=== PATIENT | male | born 1935 | race Caucasian/White ===

== ENCOUNTER → 2016-08-16 | Outpatient (REF) | payer MEDICARE ==
[~2016-08-16] MED LIST: /PANT40TA; /WARF25TA; ACET65TA; AMLO10TA; AMLO10TA2 PO; ASTELIN; BABY81CH; CIPR500T89 PO; FLAG500T PO; GLUC500T3; LEVA250T; NAPR500T; NORCOTAB PO; PERC5TAB8; PRAV40TA2 PO; PRIL20CA; PROS5TAB; THERGRAN; TYLE325T5 PO; UROXATROL; VITA-113; VITA100T; ZEST20TA4; ZOCO20TA
[2016-08-16 15:19] LABS: ALBUMIN/GLOBULIN RATIO 1.21 (1.00-1.93); ALKALINE PHOSPHATASE 98 U/L (45-117); ALT/SGPT 54 U/L (12-78); ANION GAP 10 MEQ/L (8-16); AST/SGOT 41 U/L (15-37); BLOOD UREA NITROGEN 13 MG/DL (7-18); CARBON DIOXIDE LEVEL 28 MEQ/L (21-32); CHLORIDE LEVEL 105 MEQ/L (98-107); CHOLESTEROL LEVEL 161 MG/DL (<200); CREATININE FOR GFR 1.11 MG/DL (0.70-1.30); GLOMERULAR FILTRATION RATE > 60.0 (>35); GLUCOSE, FASTING 88 MG/DL (83-110); MAGNESIUM LEVEL 2.1 MG/DL (1.8-2.4); POTASSIUM SERUM 3.6 MEQ/L (3.5-5.1); SODIUM LEVEL 143 MEQ/L (136-145); TOTAL PROTEIN 7.3 GM/DL (6.4-8.2); TRIGLYCERIDES LEVEL 147 MG/DL (<150)
== END ==
LOC: M SFHCPLAZ 09:00
PROVIDERS: ATTEND Nurse Practitioner Family
DX: E78.2 Mixed hyperlipidemia (principal); K21.9 Gastro-esophageal reflux disease without esophagitis; Z85.46 Personal history of malignant neoplasm of prostate; E55.9 Vitamin D deficiency, unspecified

== ENCOUNTER → 2017-03-14 | Outpatient (REF) | payer MEDICARE ==
[~2017-03-14] MED LIST changes: +CIPR-249 PO; -CIPR500T89 PO
[2017-03-14 14:26] LABS: ALBUMIN 4.1 GM/DL (3.2-5.2); ALBUMIN/GLOBULIN RATIO 1.32 (1.00-1.93); ALKALINE PHOSPHATASE 96 U/L (45-117); ALT/SGPT 37 U/L (12-78); ANION GAP 7 MEQ/L (8-16); AST/SGOT 30 U/L (15-37); BILIRUBIN,TOTAL 1.2 MG/DL (0.2-1.0); BLOOD UREA NITROGEN 14 MG/DL (7-18); CALCIUM LEVEL 9.9 MG/DL (8.8-10.2); CARBON DIOXIDE LEVEL 31 MEQ/L (21-32); CHLORIDE LEVEL 101 MEQ/L (98-107); CREATININE FOR GFR 1.02 MG/DL (0.70-1.30); GLOMERULAR FILTRATION RATE > 60.0 (>35); GLUCOSE, FASTING 91 MG/DL (83-110); POTASSIUM SERUM 3.6 MEQ/L (3.5-5.1); SODIUM LEVEL 139 MEQ/L (136-145); TOTAL PROTEIN 7.2 GM/DL (6.4-8.2)
== END ==
LOC: M SFHCPLAZ 09:55
PROVIDERS: ATTEND Nurse Practitioner Family
DX: I10 Essential (primary) hypertension (principal); E55.9 Vitamin D deficiency, unspecified

== ENCOUNTER → 2017-12-12 | Outpatient (CLI) | payer MEDICARE ==
[2017-12-12 17:28] LABS: ALBUMIN 4.2 GM/DL (3.2-5.2); ALBUMIN/GLOBULIN RATIO 1.14 (1.00-1.93); ALKALINE PHOSPHATASE 130 U/L (45-117); ALT/SGPT 72 U/L (12-78); ANION GAP 9 MEQ/L (8-16); AST/SGOT 45 U/L (7-37); BILIRUBIN,TOTAL 1.3 MG/DL (0.2-1.0); BLOOD UREA NITROGEN 15 MG/DL (7-18); CALCIUM LEVEL 9.5 MG/DL (8.8-10.2); CARBON DIOXIDE LEVEL 27 MEQ/L (21-32); CHLORIDE LEVEL 103 MEQ/L (98-107); CREATININE FOR GFR 1.36 MG/DL (0.70-1.30); GLOMERULAR FILTRATION RATE 53.3 (>35); GLUCOSE, FASTING 92 MG/DL (70-100); SODIUM LEVEL 139 MEQ/L (136-145); TOTAL PROTEIN 7.9 GM/DL (6.4-8.2)
== END ==
LOC: M SMT 14:18
DX: I10 Essential (primary) hypertension (principal); J91.8 Pleural effusion in other conditions classified elsewhere
CPT/HCPCS: 80053

== ENCOUNTER → 2018-03-29 | Outpatient (REF) | payer MEDICARE ==
[2018-03-29 12:24] LABS: BASO % 0.6 % (0.0-1.0); EOS # 0.1 10^3/uL (0.0-0.50); EOS % 2.8 % (0.0-3.0); HEMATOCRIT 45.2 % (42.0-52.0); HEMOGLOBIN 14.9 g/dl (13.5-17.5); IMMATURE GRANULOCYTE % 0.2 % (0-3.0); LYMPH # 1.2 10^3/uL (1.5-4.5); MEAN CORPUSCULAR HEMOGLOBIN 32.9 pg (27.0-33.0); MEAN CORPUSCULAR VOLUME 99.8 fl (80.0-96.0); MONO # 0.4 10^3/uL (0.0-0.8); MONO % 9.5 % (0.0-5.0); NEUTROPHILS # 2.8 10^3/uL (1.8-7.7); NEUTROPHILS % 60.9 % (36.0-66.0); PLATELET COUNT, AUTOMATED 264 10^3/uL (150-450); RED BLOOD COUNT 4.53 10^6/uL (4.30-6.10); RED CELL DISTRIBUTION WIDTH 12.6 % (11.5-14.5); WHITE BLOOD COUNT 4.6 10^3/uL (4.0-10.0)
[2018-03-29 12:54] LABS: ALBUMIN 3.7 GM/DL (3.2-5.2); ALBUMIN/GLOBULIN RATIO 0.95 (1.00-1.93); ALKALINE PHOSPHATASE 130 U/L (45-117); ALT/SGPT 55 U/L (12-78); ANION GAP 9 MEQ/L (8-16); AST/SGOT 33 U/L (7-37); BILIRUBIN,TOTAL 0.8 MG/DL (0.2-1.0); BLOOD UREA NITROGEN 13 MG/DL (7-18); CARBON DIOXIDE LEVEL 29 MEQ/L (21-32); CHLORIDE LEVEL 102 MEQ/L (98-107); CREATININE FOR GFR 1.07 MG/DL (0.70-1.30); GLOMERULAR FILTRATION RATE > 60.0 (>35); GLUCOSE, FASTING 86 MG/DL (70-100); POTASSIUM SERUM 3.8 MEQ/L (3.5-5.1); SODIUM LEVEL 140 MEQ/L (136-145); TOTAL 25(OH) VITAMIN D 37.2 NG/ML (30.0-100.0); TOTAL PROTEIN 7.6 GM/DL (6.4-8.2)
== END ==
LOC: M SFHCPLAZ 08:48
DX: R06.09 Other forms of dyspnea (principal); I10 Essential (primary) hypertension; E55.9 Vitamin D deficiency, unspecified

== ENCOUNTER → 2018-03-29 | Outpatient (CLI) | payer MEDICARE | LOC: M SMT 09:53 | DX: R06.09 Other forms of dyspnea (principal); I10 Essential (primary) hypertension; E55.9 Vitamin D deficiency, unspecified | CPT/HCPCS: 80053 ==

== ENCOUNTER 2018-06-29 12:22 | Inpatient (IN) | payer MEDICARE ==
[~2018-06-29] VITALS: Ht 177.8 cm; Wt 68.0 kg
[2018-06-29] MEDS: amLODIPine 10 MG TAB PO SCH (09:00)
[~2018-06-29 12:22] MED LIST changes: -AMLO10TA2 PO; +AMLO10TA5 PO
[2018-06-29] MEDS ORDERED: OMEP40CA2 PO (12:38)
[2018-06-29 13:15] LABS: BASO % 0.6 % (0.0-1.0); EOS # 0.1 10^3/uL (0.0-0.50); EOS % 2.7 % (0.0-3.0); HEMATOCRIT 43.7 % (42.0-52.0); HEMOGLOBIN 14.9 g/dl (13.5-17.5); LYMPH # 1.2 10^3/uL (1.5-4.5); LYMPH % 23.5 % (24.0-44.0); MEAN CORPUSCULAR HGB CONC 34.1 g/dl (32.0-36.5); MEAN CORPUSCULAR VOLUME 96.7 fl (80.0-96.0); MONO # 0.5 10^3/uL (0.0-0.8); MONO % 10.1 % (0.0-5.0); NEUTROPHILS # 3.2 10^3/uL (1.8-7.7); NEUTROPHILS % 62.9 % (36.0-66.0); PLATELET COUNT, AUTOMATED 256 10^3/uL (150-450); RED BLOOD COUNT 4.52 10^6/uL (4.30-6.10); WHITE BLOOD COUNT 5.1 10^3/uL (4.0-10.0)
[2018-06-29] MEDS ORDERED: NS 1,000 ML IV ONE (13:15)
[2018-06-29 13:29] LABS: INR 1.05; PARTIAL THROMBOPLASTIN TIME 31.7 SECONDS (25.4-37.6); PROTHROMBIN TIME 13.8 SECONDS (12.1-14.4)
[2018-06-29] MEDS: MORPHINE 2 MG/ML 1ML SYRINGE (J2270) IV PRN ×2 (13:35→14:40)
[2018-06-29 13:42] LABS: ALBUMIN 3.8 GM/DL (3.2-5.2); ALT/SGPT 38 U/L (12-78); BILIRUBIN,DIRECT 0.3 MG/DL (0.0-0.2); BILIRUBIN,TOTAL 1.2 MG/DL (0.2-1.0); BLOOD UREA NITROGEN 16 MG/DL (7-18); CALCIUM LEVEL 8.9 MG/DL (8.8-10.2); CARBON DIOXIDE LEVEL 27 MEQ/L (21-32); CHLORIDE LEVEL 102 MEQ/L (98-107); CPK CREATINE PHOSPHOKINASE 107 U/L (39-308); CREATININE FOR GFR 1.16 MG/DL (0.70-1.30); GLOMERULAR FILTRATION RATE > 60.0 (>35); GLUCOSE, FASTING 95 MG/DL (70-100); LIPASE 130 U/L (73-393); MB/CK RELATIVE INDEX 2.99 (< OR =4); POTASSIUM SERUM 3.9 MEQ/L (3.5-5.1); SODIUM LEVEL 138 MEQ/L (136-145); TOTAL PROTEIN 7.9 GM/DL (6.4-8.2); TROPONIN I < 0.02 NG/ML (< 0.10)
[2018-06-29] MEDS ORDERED: ISOVUE-370 76% 100ML VIAL (Q9967) As Ordered ONE (13:46)
--- NOTE | 2018-06-29 14:40 | REP ---
CT STUDY OF THE ABDOMEN AND PELVIS WITH IV BUT WITHOUT ORAL CONTRAST: HISTORY: Left lower quadrant and inguinal pain. COMPARISON STUDY: June 08, 2014. CT FINDINGS: Preliminary digital link cutter radiograph demonstrates an unremarkable bowel gas pattern. There is mild plate-like atelectasis and linear scarring in the lung bases. No pleural effusion is seen. There is some fatty infiltration of the liver diffusely. Gallbladder surgically absent. The spleen is homogeneous. No liver or spleen lesion is seen. No adrenal lesion is observed. The kidneys enhance symmetrically and are morphologically intact. No hydronephrosis seen. There is a tiny subcentimeter cyst in the right kidney. No pancreatic abnormality is seen. Normal appendix is seen. Small and large bowel loops are unremarkable in the upper abdomen. Pelvic CT images demonstrate moderate urinary bladder distension, mild bladder wall thickening. There is a bladder diverticulum at the bladder dome. There appear to be fiducial markers at the prostate. There is a left inguinal hernia transmitting a segment of hypogastric artery into the hernia. This is unchanged from the comparison study June 08, 2014. No other abdominal wall defect is seen. IMPRESSION: There is a small left inguinal hernia unchanged from 2015 prior study. Urinary bladder is distended. No acute intra-abdominal abnormality. Electronically Signed by Vinay Evans MD 06/29/2018 04:43 P
[2018-06-29] MEDS ORDERED: NS 1,000 ML IV SCH (19:45)
[2018-06-29] MEDS ORDERED: TAMSULOSIN 0.4 MG CAP PO ONE (20:00)
[2018-06-29] MEDS: ACETAMINOPHEN TAB 650MG DOSE (2X325MG) PO PRN (22:52)
--- NOTE | 2018-06-29 23:36 | CR.PDOC ---
General Date of Consultation: Jun 29, 2018 Referring Provider: IHSAN HUGHES MD Primary Care Physician: MEREDITH BONNER NP Attending Physician: IHSAN HUGHES MD Consultation REASON FOR CONSULTATION/CHIEF COMPLAINT: confusion, bradycardia. HISTORY OF PRESENT ILLNESS: pt was doing okay living by himself at home until he started realizing he could not navigate in his own home. he has declining dementia in the last 3 years. prior he had been doing well. he was found to have pain over the suprapubic are today in the er and the er physician had him pee. he voided 400ml and had 500ml in the bladder left after they placed cueto. Urine culture obtained. Pt developed grzegorz cardia at cueto placement and again eating. Pt felt faint, but never lost consciousness. Dr. Messer informed and hospitalist consulted. Cardiology w/u discussed with Dr. Messer. ALLERGIES: Please see below. HOME MEDICATIONS: Please see below. PAST MEDICAL HISTORY: 1. prostate cancer (8-10years s/p brachytherapy)-lost to f/u 3 years ago or more says the son. 2. hypertension 3. copd (2nd hand smoke) 4. dementia (3years). PAST SURGICAL HISTORY: 1. brachytherapy FAMILY HISTORY: n/a SOCIAL HISTORY: Tobacco use:never smoker (2nd hand smoke) REVIEW OF SYSTEMS: CONSTITUTIONAL: up eating then after about 20min discussion with him and his son he became faint and experienced bradycardia to about 45. HEENT: no erythema or exudate. CARDIOVASCULAR: bradycardia. RESPIRATORY: good excursion no wheeze no stridor. GENITOURINARY: cueto (urine yellow); urinary retention; prostate cancer lost to follow up about 3years ago. MUSCULOSKELETAL: weak. GASTROINTESTINAL: denies constipation. SKIN: bruised and aged. NEUROLOGICAL: dementia, relies on son for source of information. PSYCHIATRIC: denies depression and anxiety. ENDOCRINE: denies thyroid disease. HEMATOLOGIC/LYMPHATIC: bruising. PHYSICAL EXAMINATION: VITAL SIGNS: Please see below. GENERAL APPEARANCE: alert oriented to self and place. HEENT: no erythema no exudate. RESPIRATORY: good excursion no wheeze no stridor. CARDIOVASCULAR: grzegorz cardia (sinus on the monitor). ABDOMEN: soft non tender; cueto in place (yellow urine). EXTREMITIES: bruising aged skin. NEUROLOGICAL: dementia reported, not tested except refer to his son for info. PSYCHIATRIC: normal affect. LABORATORY DATA: Please see below. ASSESSMENT/PLAN: 1. urinary retention: cueto in place. consider starting flomax if cleared by cardiology to help with voiding. will need some recovery time with cueto; anticipate voiding trial in 2 weeks if ambulatory and recovered from his initial reason for admission (confusion and grzegorz cardia); urine culture pending. 2. h/o prostate cancer: obtain psa since its been years; s/p brachytherapy. 3. confusion and bradycardia may be related. recommend pt have cardiology w/u. spent some time discussing the f/u for the incomplete emptying of the bladder with son. possibly due to prostate growth of normal and or abnormal parts of prostate. will need to verify prostate specific antigen reflects prostate cancer in remission. records from [facility] reflect psa 0.4 (2013) to 0.18(2016) (last completed 08/2016). will order psa free and total for the am with am labs. 4. other findings on ct: left inguinal hernia/bladder divertic/renal cyst. (pt will need cysto and left groin should be monitored for strangulated or incarceration) Vital Signs/I&O Vital Signs Date Time Temp Pulse Resp B/P (MAP) Pulse Ox O2 Delivery O2 Flow Rate FiO2 06/29/18 19:49 45 20 98/58 (71) 91 Room Air 06/29/18 12:25 97.1 Laboratory Data Labs 24H Laboratory Tests 2 06/29/18 12:37: Immature Granulocyte % (Auto) 0.2, White Blood Count 5.1, Red Blood Count 4.52, Hemoglobin 14.9, Hematocrit 43.7, Mean Corpuscular Volume 96.7H, Mean Corpuscular Hemoglobin 33.0, Mean Corpuscular Hemoglobin Concent 34.1, Red Cell Distribution Width 12.9, Platelet Count 256, Neutrophils (%) (Auto) 62.9, Lymphocytes (%) (Auto) 23.5L, Monocytes (%) (Auto) 10.1H, Eosinophils (%) (Auto) 2.7, Basophils (%) (Auto) 0.6, Neutrophils # (Auto) 3.2, Lymphocytes # (Auto) 1.2L, Monocytes # (Auto) 0.5, Eosinophils # (Auto) 0.1, Basophils # (Auto) 0.0, Nucleated Red Blood Cells % (auto) 0.0, Prothrombin Time 13.8, Prothromb Time International Ratio 1.05, Activated Partial Thromboplast Time 31.7, Anion Gap 9, Glomerular Filtration Rate > 60.0, Calcium Level 8.9, Aspartate Amino Transf (AST/SGOT) 28, Alanine Aminotransferase (ALT/SGPT) 38, Alkaline Phosphatase 120H, Total Bilirubin 1.2H, Direct Bilirubin 0.3H, Total Creatine Kinase 107, Creatine Kinase MB 3.0, Creatine Kinase MB Relative Index 2.99, Troponin I < 0.02, Total Protein 7.9, Albumin 3.8, Albumin/Globulin Ratio 0.93L, Lipase 130 06/29/18 14:44: Lactic Acid Level 0.7 06/29/18 15:39: Urine Color YELLOW, Urine Appearance CLEAR, Urine pH 7.0, Urine Specific [place] 1.029, Urine Protein NEGATIVE, Urine Glucose (UA) NEGATIVE, Urine Ketones NEGATIVE, Urine Blood NEGATIVE, Urine Nitrite NEGATIVE, Urine Bilirubin NEGATIVE, Urine Urobilinogen 2.0H, Urine Leukocyte Esterase NEGATIVE, Urine WBC (Auto) 0, Urine RBC (Auto) 0, Urine Hyaline Casts (Auto) 0, Urine Bacteria (Auto) NEGATIVE, Urine Squamous Epithelial Cells 0, Urine Sperm (Auto) CBC/BMP Laboratory Tests 06/29/18 12:37 Red Blood Count 4.52, Mean Corpuscular Volume 96.7 H, Mean Corpuscular Hemoglobin 33.0, Mean Corpuscular Hemoglobin Concent 34.1, Red Cell Distribution Width 12.9, Neutrophils (%) (Auto) 62.9, Lymphocytes (%) (Auto) 23.5 L, Monocytes (%) (Auto) 10.1 H, Eosinophils (%) (Auto) 2.7, Basophils (%) (Auto) 0.6, Neutrophils # (Auto) 3.2, Lymphocytes # (Auto) 1.2 L, Monocytes # (Auto) 0.5, Eosinophils # (Auto) 0.1, Basophils # (Auto) 0.0 Microbiology Microbiology 06/29/18 Blood Culture, Received Pending 06/29/18 Blood Culture, Received Pending Allergies Coded Allergies: SEPIDEH Inhibitors (Verified Allergy, Intermediate, ARF, 09/10/12) Lisinopril (Verified Allergy, Intermediate, ARF, 09/10/12) Codeine (Verified Adverse Reaction, Intermediate, HARD TO URINATE, 09/10/12) Home Medications Scheduled Amlodipine Besylate (Amlodipine Besylate) 10 Mg Tab, 10 MG PO DAILY, (Reported) Omeprazole (Omeprazole) 40 Mg Cap, 40 MG PO DAILY, (Reported) Pravastatin Sod (Pravastatin Sodium) 40 Mg Tab, 40 MG PO DAILY, (Reported) Amy Ceja MD Jun 29, 2018 20:37
--- NOTE | 2018-06-30 04:03 | REP ---
Clinical: Altered mental status. Comparison: MRI dated 03/09/2015 . Findings: Atrophy with periventricular leukomalacia and microvascular ischemic changes are appreciated. 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 The ventricles and sulci are symmetric. Duke-white differentiation is maintained. There is no evidence for acute intracranial hemorrhage, mass/mass effect, pathology or infarction. No extra-axial fluid collection. Calvarium is intact. Paranasal sinuses and mastoid air cells are clear. Impression: Atrophy and microvascular ischemic changes. No acute intracranial hemorrhage, infarction, or mass/mass effect. Electronically Signed by Luciano Yu MD 06/29/2018 08:24 P
--- NOTE | 2018-06-30 04:03 | HPE ---
DATE OF ADMISSION: 06/29/2018 PRIMARY CARE PROVIDER: Lia Berman NP ATTENDING PHYSICIAN: Dr. Hughes CHIEF COMPLAINT: Dizziness and confusion. HISTORY OF PRESENT ILLNESS: The patient is an [id number] white male with history of hypertension, dyslipidemia who presented to the hospital for management of the confusion. The history was provided by himself as well as by his son who is with him in the ER. The patient is a poor historian. Per the son, the patient is living by himself and he has Meals on Wheels and today about noon time the people who deliver the food to the patient called the son and said patient not doing well and the son went over to check on him and he was sitting on the couch and was confused so 911 was called and brought to the hospital for evaluation. In the ER his initial workup was not significant however he was found to have urine retention which the Johnson catheter was inserted by the attending. After that he is more awake, alert. Medicine service was called for admission. REVIEW OF SYSTEMS: No fever, no chills, no blurry vision. Positive for dizziness and no chest pain, no abdomen pain and no diarrhea. No tingling, numbness or weakness in the arm or lower extremities. All other systems were reviewed but negative. PAST MEDICAL HISTORY: 1. Hypertension. 2. Dyslipidemia. 3. Prostate cancer, post radiation therapy. PAST SURGICAL HISTORY: 1. Left knee replacement. 2. Hernia repair. 3. Cholecystectomy. ALLERGIES: No known drug allergies. FAMILY HISTORY: Reviewed and noncontributory. MEDICATIONS: Omeprazole 40 mg by mouth daily, Pravastatin 40 mg by mouth daily, amlodipine 10 mg by mouth daily. SOCIAL HISTORY: No alcohol abuse, no illicit drug abuse, no tobacco use and he is , lives by himself. He is DO NOT RESUSCITATE DO NOT INTUBATE. PHYSICAL EXAMINATION: VITALS: Temperature 97.1, heart rate 80, respiratory rate 18, blood pressure 150/97 and Oxygen sat 97% on room air. GENERAL: He is awake, alert and oriented times three. HEENT: Atraumatic, pupils are equal, round and reactive. No jaundice. Extraocular muscles intact. Ear, nose and throat are normal. Mouth mucous is dry. NECK: No JVD and no bruits. LUNGS: Clear no wheeze no crackles. HEART: S1, S2 regular and no murmur. ABDOMEN: Soft and nontender. EXTREMITIES: No edema in bilateral lower extremities. NEUROLOGICAL: Nonfocal. SKIN: No rash. PSYCHOLOGICAL: No acute psychosis. LABS: CBC showed a WBC 5.1, hemoglobin and hematocrit 14.9 over 43, platelets 256, sodium 138, potassium 3.9, chloride 102, bicarbonate 27, BUN 16, creatinine 1.16, glucose 95, UA is normal. CT of the abdomen and pelvis not significant. IMPRESSION: 1. Altered mental status. 2. Urinary retention. 3. Hypertension and dyslipidemia. PLAN: Patient will be admitted to med-surgical floor and his confusion seemed to have resolved after Johnson catheter inserted for urine retention. He does not have any neurological deficit. We will schedule a head CT. We will continue her home medications. We will consult a urologist for the urine retention.
[2018-06-30] MEDS: ACETAMINOPHEN TAB 650MG DOSE (2X325MG) PO PRN ×2 (04:45→16:52)
[2018-06-30] MEDS: PRAVASTATIN 20 MG TAB PO SCH (08:35)
[2018-06-30] MEDS: OMEPRAZOLE 20 MG CAP PO SCH (08:36)
[2018-06-30] MEDS: amLODIPine 10 MG TAB PO SCH (08:36)
[2018-06-30 09:39] LABS: BASO % 0.3 % (0.0-1.0); EOS # 0.1 10^3/uL (0.0-0.50); EOS % 0.8 % (0.0-3.0); HEMATOCRIT 40.5 % (42.0-52.0); HEMOGLOBIN 13.6 g/dl (13.5-17.5); LYMPH # 0.9 10^3/uL (1.5-4.5); LYMPH % 12.3 % (24.0-44.0); MEAN CORPUSCULAR HEMOGLOBIN 32.7 pg (27.0-33.0); MEAN CORPUSCULAR HGB CONC 33.6 g/dl (32.0-36.5); MEAN CORPUSCULAR VOLUME 97.4 fl (80.0-96.0); MONO # 0.5 10^3/uL (0.0-0.8); MONO % 6.7 % (0.0-5.0); NEUTROPHILS # 5.7 10^3/uL (1.8-7.7); NEUTROPHILS % 79.6 % (36.0-66.0); PLATELET COUNT, AUTOMATED 241 10^3/uL (150-450); RED BLOOD COUNT 4.16 10^6/uL (4.30-6.10); WHITE BLOOD COUNT 7.2 10^3/uL (4.0-10.0)
[2018-06-30 10:17] LABS: BLOOD UREA NITROGEN 12 MG/DL (7-18); CALCIUM LEVEL 8.5 MG/DL (8.8-10.2); CARBON DIOXIDE LEVEL 26 MEQ/L (21-32); CHLORIDE LEVEL 105 MEQ/L (98-107); CHOLESTEROL LEVEL 208 MG/DL (<200); CHOLESTEROL RISK RATIO 5.333 (<5); CPK CREATINE PHOSPHOKINASE 165 U/L (39-308); GLOMERULAR FILTRATION RATE > 60.0 (>35); GLUCOSE, FASTING 104 MG/DL (70-100); HDL CHOLESTEROL 39 MG/DL (>40); LDL CHOLESTEROL 133 MG/DL (<100); MB/CK RELATIVE INDEX 2.67 (< OR =4); NON-HDL-C 169 MG/DL; POTASSIUM SERUM 3.7 MEQ/L (3.5-5.1); SODIUM LEVEL 138 MEQ/L (136-145); TRIGLYCERIDES LEVEL 178 MG/DL (<150); TROPONIN I < 0.02 NG/ML (< 0.10)
[2018-06-30 10:20] VITALS: BP 119/64
--- NOTE | 2018-06-30 10:45 | IPNPDOC ---
Date Seen The patient was seen on 06/30/18. Progress Note SUBJECTIVE: No fever, no chills, no blurry vision. Positive for dizziness and no chest pain, no abdomen pain and no diarrhea. No tingling, numbness or weakness in the arm or lower extremities. All other systems were reviewed but negative. Pt requesting to go to the bathroom, and was reminded that he has a cueto. pt says, "no , the other one." Staff assisted pt to the bathroom. He admits to living alone, and is open to placement as he cannot care for himself anymore. PFS consulted for placement. PHYSICAL EXAMINATION: VITALS: pls see below GENERAL: He is awake, alert and oriented times three. HEENT: Atraumatic, pupils are equal, round and reactive. No jaundice. Extraocular muscles intact. Ear, nose and throat are normal. Mouth mucous is dry. NECK: No JVD and no bruits. LUNGS: Clear no wheeze no crackles. HEART: S1, S2 regular and no murmur. ABDOMEN: Soft and nontender. EXTREMITIES: No edema in bilateral lower extremities. NEUROLOGICAL: Nonfocal. SKIN: No rash. PSYCHOLOGICAL: No acute psychosis. LABS on admission: CBC showed a WBC 5.1, hemoglobin and hematocrit 14.9 over 43, platelets 256, sodium 138, potassium 3.9, chloride 102, bicarbonate 27, BUN 16, creatinine 1.16, glucose 95, UA is normal. Today's labs, reviewed, pls see below IMAGING STUDIES: CT of the abdomen and pelvis not significant. ASSESSMENT AND PLAN: The patient is an 27-[id number][age][id number] white male with history of hypertension, dyslipidemia who presented to the hospital for management of the confusion. The history was provided by himself as well as by his son who is with him in the ER. The patient is a poor historian. Per the son, the patient is living by himself and he has Meals on Wheels and today about noon time the people who deliver the food to the patient called the son and said patient not doing well and the son went over to check on him and he was sitting on the couch and was confused so 911 was called and brought to the hospital for evaluation. In the ER his initial workup was not significant however he was found to have urine retention which the Cueto catheter was inserted by the attending. After that he is more awake, alert. Medicine service was called for admission. Altered mental status. Patient will be admitted to med-surgical floor and his confusion seemed to have resolved after Cueto catheter inserted for urine retention. He does not have any neurological deficit. We will schedule a head CT. Urinary retention. urologist for the urine retention. Hypertension We will continue her home medications. dyslipidemia. We will continue her home medications. Prostate cancer, post radiation therapy. Left knee replacement. Hernia repair. Cholecystectomy. CODE STATUS:He is DO NOT RESUSCITATE DO NOT INTUBATE. disposition: placement. pfs consulted. VS, I&O, 24H, [facility] Vital Signs/I&O Vital Signs Date Time Temp Pulse Resp B/P (MAP) Pulse Ox O2 Delivery O2 Flow Rate FiO2 06/30/18 06:01 99.0 61 2 134/69 (90) 92 Room Air I&O- Last 24 Hours up to 6 AM 06/30/18 06:00 Intake Total 240 ml Output Total 1750 ml Balance -1510 ml Laboratory Data 24H LABS Laboratory Tests 2 06/29/18 12:37: Immature Granulocyte % (Auto) 0.2, White Blood Count 5.1, Red Blood Count 4.52, Hemoglobin 14.9, Hematocrit 43.7, Mean Corpuscular Volume 96.7H, Mean Corpuscular Hemoglobin 33.0, Mean Corpuscular Hemoglobin Concent 34.1, Red Cell Distribution Width 12.9, Platelet Count 256, Neutrophils (%) (Auto) 62.9, Lymph ocytes (%) (Auto) 23.5L, Monocytes (%) (Auto) 10.1H, Eosinophils (%) (Auto) 2.7, Basophils (%) (Auto) 0.6, Neutrophils # (Auto) 3.2, Lymphocytes # (Auto) 1.2L, Monocytes # (Auto) 0.5, Eosinophils # (Auto) 0.1, Basophils # (Auto) 0.0, Nucleated Red Blood Cells % (auto) 0.0, Prothrombin Time 13.8, Prothromb Time International Ratio 1.05, Activated Partial Thromboplast Time 31.7, Anion Gap 9, Glomerular Filtration Rate > 60.0, Calcium Level 8.9, Aspartate Amino Transf (AST/SGOT) 28, Alanine Aminotransferase (ALT/SGPT) 38, Alkaline Phosphatase 120H, Total Bilirubin 1.2H, Direct Bilirubin 0.3H, Total Creatine Kinase 107, Creatine Kinase MB 3.0, Creatine Kinase MB Relative Index 2.99, Troponin I < 0.02, Total Protein 7.9, Albumin 3.8, Albumin/Globulin Ratio 0.93L, Lipase 130 06/29/18 14:44: Lactic Acid Level 0.7 06/29/18 15:39: Urine Color YELLOW, Urine Appearance CLEAR, Urine pH 7.0, Urine Specific [place] 1.029, Urine Protein NEGATIVE, Urine Glucose (UA) NEGATIVE, Urine Ketones NEGATIVE, Urine Blood NEGATIVE, Urine Nitrite NEGATIVE, Urine Bilirubin NEGATIVE, Urine Urobilinogen 2.0H, Urine Leukocyte Esterase NEGATIVE, Urine WBC (Auto) 0, Urine RBC (Auto) 0, Urine Hyaline Casts (Auto) 0, Urine Bacteria (Auto) NEGATIVE, Urine Squamous Epithelial Cells 0, Urine Sperm (Auto) CBC/BMP Laboratory Tests 06/29/18 12:37 Red Blood Count 4.52, Mean Corpuscular Volume 96.7 H, Mean Corpuscular Hemoglobin 33.0, Mean Corpuscular Hemoglobin Concent 34.1, Red Cell Distribution Width 12.9, Neutrophils (%) (Auto) 62.9, Lymphocytes (%) (Auto) 23.5 L, Monocytes (%) (Auto) 10.1 H, Eosinophils (%) (Auto) 2.7, Basophils (%) (Auto) 0.6, Neutrophils # (Auto) 3.2, Lymphocytes # (Auto) 1.2 L, Monocytes # (Auto) 0.5, Eosinophils # (Auto) 0.1, Basophils # (Auto) 0.0 Microbiology Microbiology 06/29/18 Blood Culture, Received Pending 06/29/18 Blood Culture, Received Pending JEANNE KEENAN MD Jun 30, 2018 06:51
[2018-06-30 14:00] VITALS: BP 127/64
[2018-06-30 22:00] VITALS: BP 129/69
[2018-07-01] MEDS: ACETAMINOPHEN TAB 650MG DOSE (2X325MG) PO PRN ×2 (05:37→22:00)
[2018-07-01 06:00] VITALS: BP 142/70
--- NOTE | 2018-07-01 08:56 | ECGEPIP ---
Stationary ECG Study [facility] - ED Test Date: 2018-06-29 Pat Name: CARLEEN SHAFFER Department: Room: - Gender: M Service Support Representative: : 1935 Requested By: Talib Marti Order Number: [id number] Reading MD: Iveth Hardy Measurements Intervals [place] Rate: 68 P: 70 CT: 199 QRS: 22 QRSD: 90 T: 70 QT: 400 QTc: 428 Interpretive Statements SINUS RHYTHM NSTTW ABNORMALITY DECREASED RATE 06/10/14 Electronically Signed On 07-01-2018 8:56:46 EST by Iveth Hardy
[2018-07-01] MEDS: OMEPRAZOLE 20 MG CAP PO SCH (09:01)
[2018-07-01] MEDS: PRAVASTATIN 20 MG TAB PO SCH (09:02)
[2018-07-01] MEDS: amLODIPine 10 MG TAB PO SCH (09:02)
[2018-07-01 14:00] VITALS: BP 128/67
--- NOTE | 2018-07-01 16:50 | IPNPDOC ---
Date Seen The patient was seen on 07/01/18. Progress Note SUBJECTIVE: Pt was seen and examined at the bedside while eating breakfast. He has no c/o dysuria, urgency, or frequency. Johnson to gravity draining well and no cloudiness or foul odor. no fever or chills. Pt lives alone and requests assistance with discharge options. Pt is unable to care for himself at home anymore. PFS consulted. no other acute medical issues. PHYSICAL EXAMINATION: VITALS: pls see below GENERAL: He is awake, alert and oriented times three. HEENT: Atraumatic, pupils are equal, round and reactive. No jaundice. Extraocular muscles intact. Ear, nose and throat are normal. Mouth mucous is dry. NECK: No JVD and no bruits. LUNGS: Clear no wheeze no crackles. HEART: S1, S2 regular and no murmur. ABDOMEN: Soft and nontender. EXTREMITIES: No edema in bilateral lower extremities. NEUROLOGICAL: Nonfocal. SKIN: No rash. PSYCHOLOGICAL: No acute psychosis. LABS on admission: CBC showed a WBC 5.1, hemoglobin and hematocrit 14.9 over 43, platelets 256, sodium 138, potassium 3.9, chloride 102, bicarbonate 27, BUN 16, creatinine 1.16, glucose 95, UA is normal. Today's labs, reviewed, pls see below IMAGING STUDIES: CT of the abdomen and pelvis not significant. ASSESSMENT AND PLAN: The patient is an [id number] white male with history of hypertension, dyslipidemia who presented to the hospital for management of the confusion. The history was provided by himself as well as by his son who is with him in the ER. The patient is a poor historian. Per the son, the patient is living by himself and he has Meals on Wheels and today about noon time the people who deliver the food to the patient called the son and said patient not doing well and the son went over to check on him and he was sitting on the couch and was confused so 911 was called and brought to the hospital for evaluation. In the ER his initial workup was not significant however he was found to have urine retention which the Johnson catheter was inserted by the attending. After that he is more awake, alert. Medicine service was called for admission. Altered mental status, resolved. Patient will be admitted to med-surgical floor and his confusion seemed to have resolved after Johnson catheter inserted for urine retention. He does not have any neurological deficit. We will schedule a head CT. Urinary retention. urologist for the urine retention. Hypertension We will continue her home medications. dyslipidemia. We will continue her home medications. Prostate cancer, post radiation therapy. Left knee replacement. Hernia repair. Cholecystectomy. CODE STATUS:He is DO NOT RESUSCITATE DO NOT INTUBATE. disposition: Pt lives alone and requests assistance with discharge options. Pt is unable to care for himself at home anymore. PFS consulted. no other acute medical issues. placement. pfs consulted. VS, I&O, 24H, [facility] Vital Signs/I&O Vital Signs Date Time Temp Pulse Resp B/P (MAP) Pulse Ox O2 Delivery O2 Flow Rate FiO2 07/01/18 14:00 98.7 70 18 128/67 (87) 90 Room Air I&O- Last 24 Hours up to 6 AM 07/01/18 06:00 Intake Total 290 ml Output Total 2150 ml Balance -1860 ml Laboratory Data 24H LABS Laboratory Tests 2 07/01/18 07:38: Urine Color YELLOW, Urine Appearance CLEAR, Urine pH 5.0, Urine Specific [place] 1.017, Urine Protein 1+H, Urine Glucose (UA) NEGATIVE, Urine Ketones NEGATIVE, Urine Blood 1+H, Urine Nitrite NEGATIVE, Urine Bilirubin NEGATIVE, Urine Urobilinogen 4.0H, Urine Leukocyte Esterase TRACEH, Urine WBC (Auto) 2, Urine RBC (Auto) 1, Urine Hyaline Casts (Auto) 0, Urine Bacteria (Auto) NEGATIVE, Urine Squamous Epithelial Cells 0, Urine Mucus (Auto) SMALL, Urine Sperm (Auto) Microbiology Microbiology 06/29/18 Blood Culture - Preliminary, Resulted No Growth after 48 hours. All Specime... 06/29/18 Blood Culture - Preliminary, Resulted No Growth after 48 hours. All Specime... 07/01/18 Urine Culture, Received Pending JEANNE KEENAN MD Jul 01, 2018 16:50
[2018-07-01 22:00] VITALS: BP 150/85
[2018-07-02 06:00] VITALS: BP 144/84
[2018-07-02] MEDS: OMEPRAZOLE 20 MG CAP PO SCH (08:10)
[2018-07-02] MEDS: PRAVASTATIN 20 MG TAB PO SCH (08:10)
[2018-07-02] MEDS: amLODIPine 10 MG TAB PO SCH (08:11)
--- NOTE | 2018-07-02 09:18 | IPNPDOC ---
Date Seen The patient was seen on 07/02/18. Progress Note SUBJECTIVE: Awaiting placement. medicallystable. ok to transfer to [facility] status until placement can be finalized. Pt was seen and examined at the bedside while eating breakfast. He has no c/o dysuria, urgency, or frequency. Johnson to gravity draining well and no cloudiness or foul odor. no fever or chills. Pt lives alone and requests assistance with discharge options. Pt is unable to care for himself at home anymore. PFS consulted. no other acute medical issues. PHYSICAL EXAMINATION: VITALS: pls see below GENERAL: He is awake, alert and oriented times three. HEENT: Atraumatic, pupils are equal, round and reactive. No jaundice. Extraocular muscles intact. Ear, nose and throat are normal. Mouth mucous is dry. NECK: No JVD and no bruits. LUNGS: Clear no wheeze no crackles. HEART: S1, S2 regular and no murmur. ABDOMEN: Soft and nontender. EXTREMITIES: No edema in bilateral lower extremities. NEUROLOGICAL: Nonfocal. SKIN: No rash. PSYCHOLOGICAL: No acute psychosis. LABS on admission: CBC showed a WBC 5.1, hemoglobin and hematocrit 14.9 over 43, platelets 256, sodium 138, potassium 3.9, chloride 102, bicarbonate 27, BUN 16, creatinine 1.16, glucose 95, UA is normal. Today's labs, reviewed, pls see below IMAGING STUDIES: CT of the abdomen and pelvis not significant. ASSESSMENT AND PLAN: The patient is an [id number] white male with history of hypertension, dyslipidemia who presented to the hospital for management of the confusion. The history was provided by himself as well as by his son who is with him in the ER. The patient is a poor historian. Per the son, the patient is living by himself and he has Meals on Wheels and today about noon time the people who deliver the food to the patient called the son and said patient not doing well and the son went over to check on him and he was sitting on the couch and was confused so 911 was called and brought to the hospital for evaluation. In the ER his initial workup was not significant however he was found to have urine retention which the Johnson catheter was inserted by the attending. After that he is more awake, alert. Medicine service was called for admission. Altered mental status, resolved. Patient will be admitted to med-surgical floor and his confusion seemed to have resolved after Johnson catheter inserted for urine retention. He does not have any neurological deficit. We will schedule a head CT. Urinary retention. urologist for the urine retention. Hypertension We will continue her home medications. dyslipidemia. We will continue her home medications. Prostate cancer, post radiation therapy. Left knee replacement. Hernia repair. Cholecystectomy. CODE STATUS:He is DO NOT RESUSCITATE DO NOT INTUBATE. disposition: Pt lives alone and requests assistance with discharge options. Pt is unable to care for himself at home anymore. PFS consulted. no other acute medical issues. placement. pfs consulted. VS, I&O, 24H, Fishbone Vital Signs/I&O Vital Signs Date Time Temp Pulse Resp B/P (MAP) Pulse Ox O2 Delivery O2 Flow Rate FiO2 07/02/18 06:00 97.7 61 17 144/84 (104) 93 Room Air I&O- Last 24 Hours up to 6 AM 07/02/18 06:00 Intake Total 1200 ml Output Total 2250 ml Balance -1050 ml Laboratory Data Microbiology Microbiology 06/29/18 Blood Culture - Preliminary, Resulted No Growth after 48 hours. All Specime... 06/29/18 Blood Culture - Preliminary, Resulted No Growth after 48 hours. All Specime... 07/01/18 Urine Culture, Received Pending JEANNE KEENAN MD Jul 02, 2018 09:18
[2018-07-02 12:04] LABS: HEMATOCRIT 41.2 % (42.0-52.0); HEMOGLOBIN 14.1 g/dl (13.5-17.5); MEAN CORPUSCULAR HGB CONC 34.2 g/dl (32.0-36.5); MEAN CORPUSCULAR VOLUME 96.5 fl (80.0-96.0); PLATELET COUNT, AUTOMATED 242 10^3/uL (150-450); RED BLOOD COUNT 4.27 10^6/uL (4.30-6.10); WHITE BLOOD COUNT 8.3 10^3/uL (4.0-10.0)
[2018-07-02 12:38] LABS: BLOOD UREA NITROGEN 13 MG/DL (7-18); CARBON DIOXIDE LEVEL 30 MEQ/L (21-32); CHLORIDE LEVEL 100 MEQ/L (98-107); CREATININE FOR GFR 1.15 MG/DL (0.70-1.30); GLOMERULAR FILTRATION RATE > 60.0 (>35); GLUCOSE, FASTING 83 MG/DL (70-100); POTASSIUM SERUM 3.6 MEQ/L (3.5-5.1); SODIUM LEVEL 138 MEQ/L (136-145)
[2018-07-02 14:00] VITALS: BP 129/79
[2018-07-02] MEDS: CIPRODEX OTIC SUSP 7.5ML AD SCH (22:13)
[2018-07-03 06:00] VITALS: BP 128/70
[2018-07-03] MEDS: ACETAMINOPHEN TAB 650MG DOSE (2X325MG) PO PRN ×2 (06:53→22:19)
[2018-07-03] MEDS: CIPRODEX OTIC SUSP 7.5ML AD SCH ×2 (09:00→20:38)
[2018-07-03 10:10] LABS: PSA TOTAL 0.2 ng/mL (0.0-4.0)
[2018-07-03] MEDS: OMEPRAZOLE 20 MG CAP PO SCH (10:56)
[2018-07-03] MEDS: amLODIPine 10 MG TAB PO SCH (10:56)
[2018-07-03] MEDS: PRAVASTATIN 20 MG TAB PO SCH (10:56)
--- NOTE | 2018-07-03 11:28 | IPNPDOC ---
Date Seen The patient was seen on 07/03/18. Progress Note SUBJECTIVE: Patient is a 83yo white male with cueto after 50% incomplete emptying. His urine culture is negative and renal function is normal. Except for grzegorz cardia that is persistent. PSA ordered 06/29/18 is pending. Son plans to take him home. Discussed voiding trial as outpatient. REVIEW OF SYSTEMS: CONSTITUTIONAL: son report grzegorz cardia again yesterday (unprovoked). HEENT: no erythema or exudate. CARDIOVASCULAR: bradycardia. RESPIRATORY: good excursion no wheeze no stridor. GENITOURINARY: cueto (urine yellow); urinary retention; prostate cancer lost to follow up about 3years ago. MUSCULOSKELETAL: weak. GASTROINTESTINAL: denies constipation. SKIN: bruised and aged. NEUROLOGICAL: dementia, relies on son for source of information. PSYCHIATRIC: denies depression and anxiety. ENDOCRINE: denies thyroid disease. HEMATOLOGIC/LYMPHATIC: bruising. PHYSICAL EXAMINATION: VITAL SIGNS: Please see below. GENERAL APPEARANCE: alert oriented to self and place. HEENT: no erythema no exudate. RESPIRATORY: good excursion no wheeze no stridor. CARDIOVASCULAR: grzegorz cardia (sinus on the monitor). ABDOMEN: soft non tender; cueto in place (yellow urine). EXTREMITIES: bruising aged skin. NEUROLOGICAL: dementia reported, not tested except refer to his son for info. PSYCHIATRIC: normal affect. LABORATORY DATA, IMAGING STUDIES, MICROBIOLOGY: Please see below. Echocardiogram: NOT COMPLETED. DVT prophylaxis ordered?: ASSESSMENT AND PLAN: This is a 83 yo male with incomplete emptying. PSA pending. prior h/o of prostate cancer. Voiding trial as an outpatient. Consider cardiology w/u for grzegorz cardia prior to discharge. DISPOSITION: home with son. VS, I&O, [facility] Vital Signs/I&O Vital Signs Date Time Temp Pulse Resp B/P (MAP) Pulse Ox O2 Delivery O2 Flow Rate FiO2 07/03/18 10:56 60 130/70 07/03/18 06:00 98.2 18 93 Room Air I&O- Last 24 Hours up to 6 AM 07/03/18 06:00 Intake Total 360 ml Output Total 975 ml Balance -615 ml Laboratory Data 24H LABS Laboratory Tests 2 07/02/18 11:29: Nucleated Red Blood Cells % (auto) 0.0, Anion Gap 8, Glomerular Filtration Rate > 60.0, Blood Urea Nitrogen 13, Creatinine 1.15, Sodium Level 138, Potassium Level 3.6, Chloride Level 100, Carbon Dioxide Level 30, Calcium Level 9.0 CBC/BMP Laboratory Tests 07/02/18 11:29 Red Blood Count 4.27 L, Mean Corpuscular Volume 96.5 H, Mean Corpuscular Hemoglobin 33.0, Mean Corpuscular Hemoglobin Concent 34.2, Red Cell Distribution Width 13.2, Calcium Level 9.0 Microbiology Microbiology 06/29/18 Blood Culture - Preliminary, Resulted No Growth after 72 hours. All specime... 06/29/18 Blood Culture - Preliminary, Resulted No Growth after 72 hours. All specime... 07/01/18 Urine Culture - Final, Complete Amy Ceja MD Jul 03, 2018 11:28
[2018-07-03 14:00] VITALS: BP 154/90
--- NOTE | 2018-07-03 15:24 | IPN ---
DATE: 07/03/2018 Jaylon was seen with his family. There is some concern expressed about his heart rate, which I think they are physiologic for an 83-year-old. Reviewing his pulse, it tends to get a little lower when he is sleeping. It is in the 60-70 range when he is awake. His EKG on admission showed no first, second, or third AV block. He has had no chronotropic agents and his TSH is normal. PHYSICAL EXAMINATION: He is alert and conversant. His lungs are clear. Heart regular rate and rhythm. Pulse was normal. IMPRESSION: Physiologic bradycardia. I do not think this precludes him receiving Flomax. Will do an EKG just to confirm this but no change from admission. I think he can safely tolerate Flomax 0.4 mg daily, which we will order once we get the EKG back. The family would like to followup with the [facility] and I will be communicating with his primary care provider about that and she can arrange to followup after discharge.
[2018-07-03 22:00] VITALS: BP 158/78
--- NOTE | 2018-07-04 00:53 | ECGEPIP ---
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
[2018-07-04 04:34] VITALS: BP 136/68
[2018-07-04 07:00] VITALS: BP 146/70
[2018-07-04] MEDS: TAMSULOSIN 0.4 MG CAP PO SCH (09:00)
[2018-07-04] MEDS: OMEPRAZOLE 20 MG CAP PO SCH (10:19)
[2018-07-04] MEDS: PRAVASTATIN 20 MG TAB PO SCH (10:22)
[2018-07-04] MEDS: amLODIPine 10 MG TAB PO SCH (10:22)
[2018-07-04] MEDS: CIPRODEX OTIC SUSP 7.5ML AD SCH ×2 (10:23→20:25)
--- NOTE | 2018-07-04 13:19 | IPN ---
DATE: 07/04/2018 Jose Ramon is seen [facility]. He is tolerating his Flomax. His heart rate has been unaffected by this. PHYSICAL EXAMINATION: 130/70. Pulse is around 60. No significant bradycardia. No symptomatic episodes. IMPRESSION: 1. Bradycardia. Physiologic. No evidence of AV block on EKG. Tolerating Flomax without difficulty. 2. Acute urinary retention. He has an indwelling Johnson catheter. He is on Flomax. Family would like to see Dr. Woody in the urology office when he has his trial of voiding and removal of catheter there. 3. Disposition. The family would like to pursue subacute rehabilitation.
[2018-07-04 14:00] VITALS: BP 118/67
[2018-07-04 14:53] LABS: PSA TOTAL 0.2 ng/mL (0.0-4.0)
[2018-07-05 06:00] VITALS: BP 119/66
--- NOTE | 2018-07-05 09:28 | IPNPDOC ---
Date Seen The patient was seen on 07/05/18. Progress Note SUBJECTIVE: Patient is a 83yo white male who is being evaluated by PT as we speak. The RN explains that the patient is not strong enough for home. His son had previously stated he wanted to take his dad home. it appears that the hospitalist team have planned to send him home. Dr. Stone has performed an EKG and put the patient on flomax. He's been on flomax since 07/04/18. His prostate specific antigen is in remission range at 0.2. REVIEW OF SYSTEMS: CONSTITUTIONAL: son report grzegorz cardia again yesterday (unprovoked). apparently physiologic bradycardia. HEENT: no erythema or exudate. CARDIOVASCULAR: bradycardia. RESPIRATORY: good excursion no wheeze no stridor. GENITOURINARY: cueto (urine yellow- slightly darker today; urinary retention; prostate cancer lost to follow up about 3years ago. MUSCULOSKELETAL: weak. GASTROINTESTINAL: denies constipation. SKIN: bruised and aged. NEUROLOGICAL: dementia, relies on son for source of information. PSYCHIATRIC: denies depression and anxiety. ENDOCRINE: denies thyroid disease. HEMATOLOGIC/LYMPHATIC: bruising. PHYSICAL EXAMINATION: VITAL SIGNS: Please see below. GENERAL APPEARANCE: alert oriented to self and place. HEENT: no erythema no exudate. RESPIRATORY: good excursion no wheeze no stridor. CARDIOVASCULAR: grzegorz cardia (sinus on the monitor). ABDOMEN: soft non tender; cueto in place (yellow urine). EXTREMITIES: bruising aged skin. NEUROLOGICAL: dementia reported, not tested except refer to his son for info. PSYCHIATRIC: normal affect. LABORATORY DATA, IMAGING STUDIES, MICROBIOLOGY: Please see below. ASSESSMENT AND PLAN: Patient is a 83yo white male. Consider voiding trial be completed as a vcug in after at least 2 weeks of flomax, if pooping and ambulating daily. cueto was placed 06/29/18. It is safe to keep this cueto til 07/30/18. Please change bags weekly and practice hygeine around the genitalia. DISPOSITION: to facility per his nurse. VS, I&O, 24H, Fishbone Vital Signs/I&O Vital Signs Date Time Temp Pulse Resp B/P (MAP) Pulse Ox O2 Delivery O2 Flow Rate FiO2 07/05/18 06:00 97.8 58 18 119/66 (83) 89 07/04/18 07:00 Room Air I&O- Last 24 Hours up to 6 AM 07/05/18 05:59 Intake Total 900 ml Output Total 1700 ml Balance -800 ml Laboratory Data Microbiology Microbiology 06/29/18 Blood Culture - Final, Complete NO GROWTH AFTER 5 DAYS 06/29/18 Blood Culture - Final, Complete NO GROWTH AFTER 5 DAYS 07/01/18 Urine Culture - Final, Complete Amy Ceja MD Jul 05, 2018 09:25
[2018-07-05] MEDS: TAMSULOSIN 0.4 MG CAP PO SCH (09:32)
[2018-07-05] MEDS: PRAVASTATIN 20 MG TAB PO SCH (09:32)
[2018-07-05] MEDS: amLODIPine 10 MG TAB PO SCH (09:33)
[2018-07-05] MEDS: CIPRODEX OTIC SUSP 7.5ML AD SCH ×2 (09:33→20:44)
[2018-07-05] MEDS: OMEPRAZOLE 20 MG CAP PO SCH (09:33)
[2018-07-05 09:39] LABS: HEMATOCRIT 41.4 % (42.0-52.0); MEAN CORPUSCULAR HEMOGLOBIN 32.6 pg (27.0-33.0); MEAN CORPUSCULAR HGB CONC 33.8 g/dl (32.0-36.5); MEAN CORPUSCULAR VOLUME 96.3 fl (80.0-96.0); PLATELET COUNT, AUTOMATED 251 10^3/uL (150-450); WHITE BLOOD COUNT 5.5 10^3/uL (4.0-10.0)
[2018-07-05 10:07] LABS: BLOOD UREA NITROGEN 18 MG/DL (7-18); CARBON DIOXIDE LEVEL 30 MEQ/L (21-32); CHLORIDE LEVEL 102 MEQ/L (98-107); CREATININE FOR GFR 1.09 MG/DL (0.70-1.30); GLOMERULAR FILTRATION RATE > 60.0 (>35); GLUCOSE, FASTING 108 MG/DL (70-100); POTASSIUM SERUM 3.5 MEQ/L (3.5-5.1); SODIUM LEVEL 139 MEQ/L (136-145)
[2018-07-05 14:00] VITALS: BP 128/68
[2018-07-06 06:00] VITALS: BP 150/77
[2018-07-06 08:22] VITALS: BP 150/77
[2018-07-06] MEDS: TAMSULOSIN 0.4 MG CAP PO SCH (08:22)
[2018-07-06] MEDS: amLODIPine 10 MG TAB PO SCH (08:22)
[2018-07-06] MEDS: OMEPRAZOLE 20 MG CAP PO SCH (08:22)
[2018-07-06] MEDS: PRAVASTATIN 20 MG TAB PO SCH (08:22)
[2018-07-06] MEDS: CIPRODEX OTIC SUSP 7.5ML AD SCH (08:23)
[2018-07-06] MEDS: ACETAMINOPHEN TAB 650MG DOSE (2X325MG) PO PRN (13:31)
[2018-07-06] MEDS ORDERED: FLOM0.4C39 PO (13:54)
--- NOTE | 2018-07-20 10:39 | DSES ---
DATE OF ADMISSION: 06/29/2018 DATE OF DISCHARGE: 07/06/2018 PRINCIPAL DIAGNOSIS: Acute urinary retention requiring chronic indwelling Johnson catheter. SECONDARY DIAGNOSIS: Physiologic bradycardia. HISTORY: The patient was admitted to the hospitalist service for dizziness and confusion, found to have acute urinary retention, was admitted for further evaluation. HOSPITAL COURSE: The patient was seen by urology. Initially we were concerned about the patient taking Flomax because he was bradycardic. Did an electrocardiogram (EKG) and there was no block. We started Flomax and he tolerated it well without bradycardia or any significant side effect. On the day of discharge, his heart rate was in the 80s. Blood pressure 150/77. SIGNIFICANT LABORATORIES: White count 5.5, hemoglobin 14, platelets 251 the day before discharge. On that day, his sodium was 139, potassium 3.5, BUN 18, creatinine 1.0, glucose 108. He had a PSA that was 0.2. Blood and urine cultures were negative. DISPOSITION: The patient was discharged home with chronic indwelling Johnson catheter. Followup urology as an outpatient. Followup with his primary care provider as an outpatient. MEDICATIONS: On discharge: - amlodipine 10 mg daily - omeprazole 40 mg daily - pravastatin 40 mg daily - Flomax 0.4 mg daily Activity and diet as tolerated. Followup with primary care provider. Followup with urology per their office.
== END 2018-07-06 14:57 | disposition home health service (06) | DRG 948 ==
LOC: EDBD 12:22 → M ED 12:22 → M ED INP 19:26 → M MSPAV 06-30 10:20
PROVIDERS: ADMIT Hospitalist; ATTEND Family Medicine
DX: R41.82 Altered mental status, unspecified (principal); R33.9 Retention of urine, unspecified; R00.1 Bradycardia, unspecified; Z79.899 Other long term (current) drug therapy; I10 Essential (primary) hypertension; E78.5 Hyperlipidemia, unspecified; Z85.46 Personal history of malignant neoplasm of prostate; Z96.652 Presence of left artificial knee joint; J44.9 Chronic obstructive pulmonary disease, unspecified; F03.90 Unspecified dementia, unspecified severity, without behavioral disturbance, psychotic disturbance, mood disturbance, and anxiety; K40.90 Unilateral inguinal hernia, without obstruction or gangrene, not specified as recurrent; N28.1 Cyst of kidney, acquired; Z88.5 Allergy status to narcotic agent; Z88.8 Allergy status to other drugs, medicaments and biological substances; Z66 Do not resuscitate

== ENCOUNTER → 2018-09-24 | Outpatient (REF) | payer MEDICARE ==
[~2018-09-24] MED LIST changes: -/PANT40TA; -/WARF25TA; +COUM1TAB18; +FLOM0.4C39 PO; +HYDR-3715 PO; -NORCOTAB PO; +OMEP40CA2 PO; +PROT1TAB2
[2018-09-24 16:17] LABS: ALBUMIN 3.8 GM/DL (3.2-5.2); ALT/SGPT 91 U/L (12-78); BILIRUBIN,TOTAL 0.9 MG/DL (0.2-1.0); BLOOD UREA NITROGEN 13 MG/DL (7-18); CALCIUM LEVEL 8.9 MG/DL (8.8-10.2); CARBON DIOXIDE LEVEL 29 MEQ/L (21-32); CHLORIDE LEVEL 104 MEQ/L (98-107); CHOLESTEROL LEVEL 155 MG/DL (<200); CHOLESTEROL RISK RATIO 3.522 (<5); CREATININE FOR GFR 0.96 MG/DL (0.70-1.30); GLOMERULAR FILTRATION RATE > 60.0 (>35); GLUCOSE, FASTING 84 MG/DL (70-100); HDL CHOLESTEROL 44 MG/DL (>40); LDL CHOLESTEROL 80 MG/DL (<100); NON-HDL-C 111 MG/DL; POTASSIUM SERUM 4.2 MEQ/L (3.5-5.1); SODIUM LEVEL 138 MEQ/L (136-145); TOTAL PROTEIN 7.1 GM/DL (6.4-8.2); TRIGLYCERIDES LEVEL 155 MG/DL (<150)
[2018-09-24 16:24] LABS: TOTAL 25(OH) VITAMIN D 60.5 NG/ML (30.0-100.0); VITAMIN B12 LEVEL 608 PG/ML
[2018-09-24 16:25] LABS: FOLATE 15.4 NG/ML
== END ==
LOC: M LABDRAW1 15:23
PROVIDERS: ATTEND Nurse Practitioner Family
DX: I10 Essential (primary) hypertension (principal); E78.2 Mixed hyperlipidemia; E55.9 Vitamin D deficiency, unspecified; E53.8 Deficiency of other specified B group vitamins

== ENCOUNTER → 2018-11-13 | Outpatient (REF) | payer MEDICARE ==
[2018-11-13 16:15] LABS: ALBUMIN 3.5 GM/DL (3.2-5.2); ALT/SGPT 38 U/L (12-78); BILIRUBIN,TOTAL 0.8 MG/DL (0.2-1.0); BLOOD UREA NITROGEN 16 MG/DL (7-18); CARBON DIOXIDE LEVEL 29 MEQ/L (21-32); CHLORIDE LEVEL 103 MEQ/L (98-107); CREATININE FOR GFR 1.18 MG/DL (0.70-1.30); FREE T4 0.81 NG/DL (0.76-1.46); GLOMERULAR FILTRATION RATE > 60.0 (>35); GLUCOSE, FASTING 79 MG/DL (70-100); POTASSIUM SERUM 4.2 MEQ/L (3.5-5.1); SODIUM LEVEL 139 MEQ/L (136-145); TOTAL PROTEIN 7.6 GM/DL (6.4-8.2)
== END ==
LOC: M SFHCPLAZ 13:37
PROVIDERS: ATTEND Nurse Practitioner Family
DX: R94.5 Abnormal results of liver function studies (principal); E78.2 Mixed hyperlipidemia; R32 Unspecified urinary incontinence

== ENCOUNTER → 2018-11-22 | Outpatient (CLI) | payer MEDICARE ==
--- NOTE | 2018-11-22 09:27 | REP ---
CT BRAIN WITHOUT IV CONTRAST: CT brain was performed without IV contrast. Comparison is made with prior study 06/29/2018. There is moderate atrophy. There is no midline shift or mass effect. Extensive periventricular small vessel ischemic changes are again seen similar to the prior exam. There an old focal lacunar infarct in the right cerebellum unchanged. 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 There is no acute intracranial hemorrhage or extra-axial fluid collections. There are mild vascular calcifications in the carotid siphons. IMPRESSION: Old ischemic changes are stable. No acute intracranial hemorrhage, midline shift or mass effect. Electronically Signed by Kwaku Duke MD 11/22/2018 05:12 P
== END ==
LOC: M RAD 08:33
PROVIDERS: ATTEND Nurse Practitioner Family
DX: R41.0 Disorientation, unspecified (principal); Z82.49 Family history of ischemic heart disease and other diseases of the circulatory system

== ENCOUNTER 2018-11-28 08:48 | Emergency (ER) | payer MEDICARE ==
[2018-11-28 09:32] LABS: BASO % 0.2 % (0.0-1.0); EOS % 0.4 % (0.0-3.0); HEMATOCRIT 41.3 % (42.0-52.0); HEMOGLOBIN 14.2 g/dl (13.5-17.5); LYMPH # 0.8 10^3/uL (1.5-4.5); LYMPH % 10.2 % (24.0-44.0); MEAN CORPUSCULAR HEMOGLOBIN 33.2 pg (27.0-33.0); MEAN CORPUSCULAR HGB CONC 34.4 g/dl (32.0-36.5); MEAN CORPUSCULAR VOLUME 96.5 fl (80.0-96.0); MONO # 0.7 10^3/uL (0.0-0.8); NEUTROPHILS # 6.6 10^3/uL (1.8-7.7); NEUTROPHILS % 80.8 % (36.0-66.0); PLATELET COUNT, AUTOMATED 248 10^3/uL (150-450); RED BLOOD COUNT 4.28 10^6/uL (4.30-6.10); WHITE BLOOD COUNT 8.2 10^3/uL (4.0-10.0)
--- NOTE | 2018-11-28 09:32 | REP ---
Clinical: Altered mental status. Possible acute cerebral infarction. Comparison: 11/22/2018 Findings: Atrophy with diffuse periventricular leukomalacia and microvascular ischemic changes are appreciated. Encephalomalacia in the left frontal region and right posterior fossa consistent with old infarctions. The ventricles and sulci are symmetric. Duke-white differentiation is maintained. There is no evidence for acute intracranial hemorrhage, mass/mass effect, pathology or infarction. No extra-axial fluid collection. Calvarium is intact. Paranasal sinuses and mastoid air cells are clear. Impression: Atrophy and microvascular ischemic changes. No acute intracranial hemorrhage, infarction, or mass/mass effect. Electronically Signed by Luciano Yu MD 11/28/2018 09:24 A
[2018-11-28 09:43] LABS: INR 1.04; PROTHROMBIN TIME 13.3 SECONDS (11.8-14.0)
[2018-11-28 09:44] LABS: PARTIAL THROMBOPLASTIN TIME 29.2 SECONDS (25.0-38.4)
[2018-11-28 10:06] LABS: BLOOD UREA NITROGEN 19 MG/DL (7-18); CALCIUM LEVEL 8.9 MG/DL (8.8-10.2); CARBON DIOXIDE LEVEL 25 MEQ/L (21-32); CHLORIDE LEVEL 103 MEQ/L (98-107); CK-MB VALUE MASS 6.8 NG/ML (<3.6); CPK CREATINE PHOSPHOKINASE 356 U/L (39-308); CREATININE FOR GFR 1.13 MG/DL (0.70-1.30); GLOMERULAR FILTRATION RATE > 60.0 (>35); GLUCOSE, FASTING 108 MG/DL (70-100); MB/CK RELATIVE INDEX 1.91 (< OR =4); POTASSIUM SERUM 3.6 MEQ/L (3.5-5.1); SODIUM LEVEL 137 MEQ/L (136-145); TROPONIN I < 0.02 NG/ML (< 0.10)
[2018-11-28 10:15] VITALS: BP 151/87
--- NOTE | 2018-11-28 10:22 | REP ---
Clinical: Acute cerebrovascular accident. Comparison: 03/29/2018. Findings: Mediastinum and cardiac silhouette are stable. Lung loza demonstrate chronic-appearing interstitial changes. No obvious focal consolidation or effusion. No pneumothorax. Skeletal structures grossly intact. Impression: Chronic stable changes. No obvious consolidation or effusion. Electronically Signed by Luciano Yu MD 11/28/2018 10:14 A
== END 2018-11-28 10:20 | disposition short-term general hospital (02) ==
LOC: EDBD 08:48 → M ED 08:48
DX: I63.9 Cerebral infarction, unspecified (principal); I10 Essential (primary) hypertension; N40.1 Benign prostatic hyperplasia with lower urinary tract symptoms; Z85.46 Personal history of malignant neoplasm of prostate; K21.9 Gastro-esophageal reflux disease without esophagitis; Z79.899 Other long term (current) drug therapy; Z88.5 Allergy status to narcotic agent; Z88.8 Allergy status to other drugs, medicaments and biological substances